=== PATIENT | male | born 1975 | race Hispanic/Latino ===

== ENCOUNTER 2020-02-17 22:05 | Emergency (ER) | payer SELFPAY ==
--- NOTE | 2020-02-17 23:09 | Emergency Department Report ---
HPI - General Chief Complaint: Arrhythmia/Palpitations Time Seen by Provider: 02/17/20 22:52 - HPI HPI: Room 38 The patient is a 44-year-old male present with a chief complaint of chest pain and palpitations. The patient states approximate 45 minutes ago he had sudden onset of sharp left-sided chest pain that lasted several seconds. Patient states he then felt palpitations whenever he gets nervous. Patient denies shortness of breath, nausea/vomiting or diaphoresis with this chest pain. 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 palpations - Surgical History Past Surgical History?: No - Family History Family history: no significant - Social History Smoking Status: Former Smoker (None x10 years) Substance Use Type: None - Medications Home Medications: Home Medications Medication Instructions Recorded Confirmed Last Taken Type Amoxicillin [Amoxicillin TAB] 875 mg PO BID #28 tablet 07/23/15 Unknown Rx Famotidine [Pepcid] 20 mg PO BID #60 tablet 07/23/15 Unknown Rx Metoprolol Tartrate [Lopressor] 50 mg PO BID 07/23/15 07/23/15 Unknown History predniSONE [Deltasone] 40 mg PO QDAY #10 tab 07/23/15 Unknown Rx Ibuprofen [Motrin] 800 mg PO Q8HR PRN #20 tablet 05/07/18 Unknown Rx metFORMIN [Glucophage] 500 mg PO BID #60 tablet 05/07/18 Unknown Rx ED Review of Systems ROS: Stated complaint: CHEST PAIN Other details as noted in HPI Constitutional: denies: diaphoresis Eyes: denies: eye pain ENT: denies: throat pain Respiratory: denies: shortness of breath Cardiovascular: chest pain, palpitations Endocrine: no symptoms reported Gastrointestinal: denies: nausea, vomiting Genitourinary: denies: dysuria Musculoskeletal: denies: back pain Neurological: denies: headache Psychiatric: anxiety Physical Exam - Physical Exam Vital Signs: Vital Signs 02/17/20 02/17/20 22:33 22:57 Temperature 97.9 F Pulse Rate 142 H Respiratory 18 20 Rate Blood Pressure 159/97 O2 Sat by Pulse 98 98 Oximetry Physical Exam: GENERAL: The patient is well-developed well-nourished male lying on stretcher not appearing to be in acute distress. [] HEENT: Normocephalic. Atraumatic. Extraocular motions are intact. Patient has moist mucous membranes. NECK: Supple. Trachea midline CHEST/LUNGS: Clear to auscultation. There is no respiratory distress noted. HEART/CARDIOVASCULAR: Regular. There is tachycardia. There is no gallop rub or murmur. ABDOMEN: Abdomen is soft, nontender. Patient has normal bowel sounds. There is no abdominal distention. SKIN: There is no rash. There is no edema. There is no diaphoresis. NEURO: The patient is awake, alert, and oriented. The patient is cooperative. The patient has normal speech MUSCULOSKELETAL: There is no evidence of acute injury. ED Course Vital Signs 02/17/20 02/17/20 22:33 22:57 Temperature 97.9 F Pulse Rate 142 H Respiratory 18 20 Rate Blood Pressure 159/97 O2 Sat by Pulse 98 98 Oximetry ED Medical Decision Making - Lab Data Result diagrams: 02/18/20 Unknown 02/17/20 23:30 Laboratory Tests 02/17/20 02/17/20 02/17/20 23:30 23:30 23:30 WBC RBC Hgb Hct MCV MCH MCHC RDW Plt Count Lymph % (Auto) [place] % (Auto) Eos % (Auto) Baso % (Auto) Lymph # (Auto) [place] # (Auto) Eos # (Auto) Baso # (Auto) Seg Neutrophils % Seg Neutrophils # D-Dimer < 135.00 Sodium 141 Potassium 4.0 Chloride 102.3 Carbon Dioxide 23 Anion Gap 20 BUN 18 Creatinine 1.1 Estimated GFR > 60 BUN/Creatinine Ratio 16 Glucose 239 H Calcium 9.9 Magnesium Total Creatine Kinase 67 CK-MB (CK-2) 1.2 CK-MB (CK-2) Rel Index 1.7 Troponin T < 0.010 TSH Free T4 Urine Opiates Screen Urine Methadone Screen Ur Barbiturates Screen Ur Phencyclidine Scrn Ur Amphetamines Screen U Benzodiazepines Scrn Urine Cocaine Screen U Marijuana (THC) Screen Drugs of Abuse Note Plasma/Serum Alcohol 02/17/20 02/17/20 02/17/20 23:30 23:30 23:30 WBC RBC Hgb Hct MCV MCH MCHC RDW Plt Count Lymph % (Auto) [place] % (Auto) Eos % (Auto) Baso % (Auto) Lymph # (Auto) [place] # (Auto) Eos # (Auto) Baso # (Auto) Seg Neutrophils % Seg Neutrophils # D-Dimer Sodium Potassium Chloride Carbon Dioxide Anion Gap BUN Creatinine Estimated GFR BUN/Creatinine Ratio Glucose Calcium Magnesium 2.00 Total Creatine Kinase CK-MB (CK-2) CK-MB (CK-2) Rel Index Troponin T TSH 1.870 Free T4 1.64 H Urine Opiates Screen Urine Methadone Screen Ur Barbiturates Screen Ur Phencyclidine Scrn Ur Amphetamines Screen U Benzodiazepines Scrn Urine Cocaine Screen U Marijuana (THC) Screen Drugs of Abuse Note Plasma/Serum Alcohol < 0.01 02/18/20 02/18/20 02/18/20 01:44 02:02 04:48 WBC RBC Hgb Hct MCV MCH MCHC RDW Plt Count Lymph % (Auto) [place] % (Auto) Eos % (Auto) Baso % (Auto) Lymph # (Auto) [place] # (Auto) Eos # (Auto) Baso # (Auto) Seg Neutrophils % Seg Neutrophils # D-Dimer Sodium Potassium Chloride Carbon Dioxide Anion Gap BUN Creatinine Estimated GFR BUN/Creatinine Ratio Glucose Calcium Magnesium Total Creatine Kinase CK-MB (CK-2) CK-MB (CK-2) Rel Index Troponin T < 0.010 < 0.010 TSH Free T4 Urine Opiates Screen Presumptive negative Urine Methadone Screen Presumptive negative Ur Barbiturates Screen Presumptive negative Ur Phencyclidine Scrn Presumptive negative Ur Amphetamines Screen Presumptive negative U Benzodiazepines Scrn Presumptive negative Urine Cocaine Screen Presumptive negative U Marijuana (THC) Screen Presumptive negative Drugs of Abuse Note Disclamer Plasma/Serum Alcohol 02/18/20 02/18/20 04:48 Unknown WBC 8.3 RBC 4.91 Hgb 15.2 Hct 43.6 MCV 89 MCH 31 MCHC 35 H RDW 13.3 Plt Count 286 Lymph % (Auto) 17.6 [place] % (Auto) 5.6 Eos % (Auto) 0.6 Baso % (Auto) 0.4 Lymph # (Auto) 1.5 [place] # (Auto) 0.5 Eos # (Auto) 0.1 Baso # (Auto) 0.0 Seg Neutrophils % 75.8 H Seg Neutrophils # 6.3 D-Dimer Sodium Potassium Chloride Carbon Dioxide Anion Gap BUN Creatinine Estimated GFR BUN/Creatinine Ratio Glucose Calcium Magnesium Total Creatine Kinase CK-MB (CK-2) CK-MB (CK-2) Rel Index Troponin T < 0.010 TSH Free T4 Urine Opiates Screen Urine Methadone Screen Ur Barbiturates Screen Ur Phencyclidine Scrn Ur Amphetamines Screen U Benzodiazepines Scrn Urine Cocaine Screen U Marijuana (THC) Screen Drugs of Abuse Note Plasma/Serum Alcohol - EKG Data -: EKG Interpreted by Me EKG shows normal: sinus rhythm Rate: tachycardia (144 bpm) - EKG Data When compared to previous EKG there are: previous EKG unavailable Interpretation: other (No ischemic changes seen) - Radiology Data Radiology results: report reviewed (Chest x-ray), image reviewed (Chest x-ray) interpreted by me: Chest x-ray-no focal infiltrates, no pneumothorax [facility], [address] [place] [address] XRay Report Signed Patient: MURRAY GAN MR#: [id number] : 1975 Acct:[id number] Age/Sex: 44 / M ADM Date: 02/17/20 Loc: ED Attending Dr: Ordering Physician: DEANDRA HERNADEZ MD Date of Service: 02/17/20 Procedure(s): XR chest 1V ap Accession Number(s): [id number] cc: DEANDRA HERNADEZ MD Fluoro Time In Minutes: XR chest 1V ap INDICATION / CLINICAL INFORMATION: Chest Pain COMPARISON: None available. FINDINGS: SUPPORT DEVICES: None. HEART / MEDIASTINUM: No significant abnormality. LUNGS / PLEURA: Lungs are clear. Costophrenic sulci are sharp. No pneumothorax. ADDITIONAL FINDINGS: No significant additional findings. IMPRESSION: 1. No acute findings. Signer Name: Timbo Hopson MD Signed: 02/17/2020 11:10 PM Workstation Name: [id number] Transcribed By: CS Dictated By: Timbo Hopson MD Electronically Authenticated By: Timbo Hopson MD Signed Date/Time: 02/17/202309 DD/ 09 TD/TT: - Differential Diagnosis PE, ACS, dysrhythmia, pericarditis, GERD, hypothyroidism Critical care attestation.: If time is entered above; I have spent that time in minutes in the direct care of this critically ill patient, excluding procedure time. ED Disposition Clinical Impression: Palpitations, Anxiety Disposition: DC-01 TO HOME OR SELFCARE Is pt being admited?: No Does the pt Need Aspirin: No Condition: Stable Additional Instructions: Return to the emergency department should you develop worsening symptoms, inability to tolerate food or liquids, high fever or any other concerns Referrals: PRIMARY CARE, [Primary Care Provider] - 3-5 Days [facility] [Provider Group] - 3-5 Days Time of Disposition: 05:26
--- NOTE | 2020-02-17 23:14 | XRay Report ---
XR chest 1V ap INDICATION / CLINICAL INFORMATION: Chest Pain COMPARISON: None available. FINDINGS: SUPPORT DEVICES: None. HEART / MEDIASTINUM: No significant abnormality. LUNGS / PLEURA: Lungs are clear. Costophrenic sulci are sharp. No pneumothorax. ADDITIONAL FINDINGS: No significant additional findings. IMPRESSION: 1. No acute findings. Signer Name: Timbo Hopson MD Signed: 02/17/2020 11:10 PM Workstation Name: [id number]
[2020-02-17] MEDS ORDERED: SODIUM CHLORIDE 0.9% 1000 ML 1,000 ML IV ONE (23:20)
[2020-02-18 00:18] LABS: Basophils % (Auto) 0.4 % (0.0-1.8); Eosinophils # (Auto) 0.1 K/mm3 (0.0-0.4); Eosinophils % (Auto) 0.6 % (0.0-4.3); Hematocrit 43.6 % (35.5-45.6); Hemoglobin 15.2 gm/dl (11.8-15.2); Lymphocytes # (Auto) 1.5 K/mm3 (1.2-5.4); Lymphocytes % (Auto) 17.6 % (13.4-35.0); Mean Corpuscular HGB Conc 35 % (32-34); Mean Corpuscular Volume 89 fl (84-94); Monocytes # (Auto) 0.5 K/mm3 (0.0-0.8); Monocytes % (Auto) 5.6 % (0.0-7.3); Platelet Count 286 K/mm3 (140-440); Red Blood Count 4.91 M/mm3 (3.65-5.03); Red Cell Distribution Width 13.3 % (13.2-15.2)
[2020-02-18 00:27] LABS: BUN/Creatinine Ratio 16; Blood Urea Nitrogen 18 mg/dL (9-20); Calcium 9.9 mg/dL (8.4-10.2); Hemolysis Index 7
[2020-02-18 00:30] LABS: Creatine Kinase MB 1.2 ng/mL (0.0-4.0)
[2020-02-18] MEDS ORDERED: SODIUM CHLORIDE 0.9% 1000 ML 1,000 ML IV ONE ×2 (00:39→03:05)
[2020-02-18 00:41] LABS: Free T4 (Free Thyroxine) 1.64 ng/dL (0.76-1.46)
[2020-02-18 02:17] LABS: Amphetamine Screen,Urine PRESUMPTIVE NEGATIVE; Benzodiazepines Screen,Urine PRESUMPTIVE NEGATIVE; Cannabinoid Screen,Urine PRESUMPTIVE NEGATIVE; Cocaine Screen,Urine PRESUMPTIVE NEGATIVE; Methadone Screen,Urine PRESUMPTIVE NEGATIVE; Opiate Screen,Urine PRESUMPTIVE NEGATIVE
[2020-02-18 05:46] VITALS: BP 152/97
== END 2020-02-18 05:58 | disposition home or self-care (01) ==
LOC: ED 22:05
DX: F41.9 Anxiety disorder, unspecified (principal); R00.2 Palpitations; K21.9 Gastro-esophageal reflux disease without esophagitis; E11.9 Type 2 diabetes mellitus without complications; Z79.899 Other long term (current) drug therapy; Z87.891 Personal history of nicotine dependence
CPT/HCPCS: 36415; 71045; 80048; 80307; 82550; 82553; 83735; 84439; 84443; 84484; 85025; 85379; 93005; 96360; 96361; 99284; J7030; 80320; G0480

== ENCOUNTER 2020-02-26 15:31 | Emergency (ER) | payer SELFPAY ==
--- NOTE | 2020-02-26 16:13 | Event Note ---
ED Screening Note Date of service: 02/26/20 Time: 16:12 ED Screening Note: Patient complains of frontal headache x2 days States headache significantly improved with Aleve Heart rate noted to be 160, patient states history of palpitations He denies any chest pain or shortness of breath at current This initial assessment/diagnostic orders/clinical plan/treatment(s) is/are subject to change based on patients health status, clinical progression and re- assessment by fellow clinical providers in the ED. Further treatment and workup at subsequent clinical providers discretion. Patient/guardian urged not to elope from the ED as their condition may be serious if not clinically assessed and man aged. Initial orders include: Labs EKG Chest x-ray
[2020-02-26 16:26] LABS: Basophils # (Auto) 0.1 K/mm3 (0.0-0.1); Basophils % (Auto) 0.6 % (0.0-1.8); Eosinophils % (Auto) 0.2 % (0.0-4.3); Hematocrit 43.3 % (35.5-45.6); Hemoglobin 15.4 gm/dl (11.8-15.2); Lymphocytes # (Auto) 1.8 K/mm3 (1.2-5.4); Lymphocytes % (Auto) 17.6 % (13.4-35.0); Mean Corpuscular HGB Conc 36 % (32-34); Mean Corpuscular Volume 88 fl (84-94); Monocytes # (Auto) 0.7 K/mm3 (0.0-0.8); Monocytes % (Auto) 7.1 % (0.0-7.3); Platelet Count 336 K/mm3 (140-440); Red Blood Count 4.93 M/mm3 (3.65-5.03); Red Cell Distribution Width 13.5 % (13.2-15.2)
[2020-02-26] MEDS ORDERED: SODIUM CHLORIDE 0.9% 1000 ML 1,000 ML IV ONE ×2 (16:45→18:03)
[2020-02-26 16:48] LABS: Alanine Aminotransferase 23 units/L (7-56); Albumin 4.8 g/dL (3.9-5); BUN/Creatinine Ratio 13; Blood Urea Nitrogen 13 mg/dL (9-20); Hemolysis Index 6
[2020-02-26 17:04] LABS: Free T4 (Free Thyroxine) 1.45 ng/dL (0.76-1.46); INR 1.04 (0.87-1.13)
[2020-02-26 17:05] LABS: Partial Thromboplastin Time 26.3 Sec. (24.2-36.6)
--- NOTE | 2020-02-26 17:23 | XRay Report ---
CHEST 1 VIEW 02/26/2020 4:16 PM INDICATION / CLINICAL INFORMATION: tachycardia. COMPARISON: 02/17/20 FINDINGS: SUPPORT DEVICES: None. HEART / MEDIASTINUM: No significant abnormality. LUNGS / PLEURA: No significant pulmonary or pleural abnormality. No pneumothorax. ADDITIONAL FINDINGS: No significant additional findings. IMPRESSION: 1. No acute findings. Signer Name: Artem Ly MD Signed: 02/26/2020 5:18 PM Workstation Name: [id number]
--- NOTE | 2020-02-26 17:39 | Emergency Department Report ---
ED Palpitations HPI - General Chief Complaint: Arrhythmia/Palpitations Stated Complaint: HEADACHE X2 DAYS Time Seen by Provider: 02/26/20 16:11 Source: patient Mode of arrival: Ambulatory Limitations: No Limitations - History of Present Illness Initial Comments: 44-year male with a past medical history of palpitations/tachycardia presents to the hospital with intermittent headache for several days and noted to have tachycardia/palpitations while in the waiting room and during triage. Patient has had intermittent headache for the last 3 days. Headache is a frontal pressure type of headache that also extends down behind the eyes and maxilla. Patient states he sleeps in a dry room with a fan in his face and suspects that he is having a sinus related headache. He took two Advil's earlier today with resolution of pain. He is also taking unknown nasal spray. He denies runny nose, nasal congestion, fever, blurry vision, neck stiffness, or focal weakness or numbness. Patient was here February for palpitations and had a unremarkable ED work-up and was subsequently discharged to follow-up with [facility]. Patient has an appointment with [facility] scheduled for tomorrow however, called the clinic expressing he had a headache and was told to come to the ER for evaluation. Patient states after arrival he developed increased heart rate and some mild anxiety. Patient reports a previous history of anxiety. He also reports that he had an outpatient cardiac work-up approximately [address] Canales in office. He states he has had both echocardiogram and a stress test and was placed on a medication in the past but cannot recall the name. Patient patient takes Metformin for diabetes, [id number] Advil and nasal spray currently. He also denies alcohol abuse and drug abuse specifically cocaine or amphetamines. Denies caffeine or energy drink use. Patient also denies history of PE/DVT, calf tenderness, or recent travel. Pt states he does have intermittent palpitations associated with anxiety that he is typically able to calm down and relax without the aid of medicine. Pt apparently has an appointment with Dr Canales scheduled for next week. - Related Data Home Medications Medication Instructions Recorded Confirmed Last Taken Metoprolol Tartrate [Lopressor] 50 mg PO BID 07/23/15 07/23/15 Unknown Previous Rx's Medication Instructions Recorded Last Taken Type Amoxicillin [Amoxicillin TAB] 875 mg PO BID #28 tablet 07/23/15 Unknown Rx Famotidine [Pepcid] 20 mg PO BID #60 tablet 07/23/15 Unknown Rx predniSONE [Deltasone] 40 mg PO QDAY #10 tab 07/23/15 Unknown Rx Ibuprofen [Motrin] 800 mg PO Q8HR PRN #20 tablet 05/07/18 Unknown Rx metFORMIN [Glucophage] 500 mg PO BID #60 tablet 05/07/18 Unknown Rx Metoprolol [Lopressor TAB] 25 mg PO BID #60 tablet 02/26/20 Unknown Rx Allergies Allergy/AdvReac Type Severity Reaction Status Date / Time No Known Allergies Allergy Verified 12/07/14 11:21 ED Review of Systems ROS: Stated complaint: HEADACHE X2 DAYS Other details as noted in HPI Comment: All other systems reviewed and negative ED Past Medical Hx - Past Medical History Hx Diabetes: Yes Hx GERD: Yes Additional medical history: sinusitis, anxiety. palpations - Social History Smoking Status: Never Smoker - Medications Home Medications: Home Medications Medication Instructions Recorded Confirmed Last Taken Type Amoxicillin [Amoxicillin TAB] 875 mg PO BID #28 tablet 07/23/15 Unknown Rx Famotidine [Pepcid] 20 mg PO BID #60 tablet 07/23/15 Unknown Rx Metoprolol Tartrate [Lopressor] 50 mg PO BID 07/23/15 07/23/15 Unknown History predniSONE [Deltasone] 40 mg PO QDAY #10 tab 07/23/15 Unknown Rx Ibuprofen [Motrin] 800 mg PO Q8HR PRN #20 tablet 05/07/18 Unknown Rx metFORMIN [Glucophage] 500 mg PO BID #60 tablet 05/07/18 Unknown Rx Metoprolol [Lopressor TAB] 25 mg PO BID #60 tablet 02/26/20 Unknown Rx ED Physical Exam - General Limitations: No Limitations - Other Other exam information: General: No acute distress Head: Atraumatic Eyes: normal appearance ENT: Moist mucous membranes Neck: Normal appearance, no midline tenderness Chest: Clear to auscultation bilaterally CV: Tachycardic, regular rhythm Abdomen: Soft, normal bowel sounds, nontender, nondistended, no rebound or guarding Back: Normal inspection Extremity: Normal inspection, full range of motion, no calf tenderness or leg edema Neuro: Alert O x 3, no facial asymmetry, speech clear, no gross motor sensory deficit Psych: Appropriate behavior Skin: No rash ED Course Vital Signs 02/26/20 02/26/20 02/26/20 16:10 16:12 17:21 Temperature 97.8 F Pulse Rate 161 H 154 H Respiratory 20 18 Rate Blood Pressure 150/109 Blood Pressure 150/109 [Right] O2 Sat by Pulse 96 96 100 Oximetry 02/26/20 02/26/20 02/26/20 18:12 21:11 22:33 Temperature Pulse Rate 129 H 123 H 86 Respiratory 18 18 Rate Blood Pressure 143/98 Blood Pressure 151/93 138/82 [Right] O2 Sat by Pulse 99 100 Oximetry - Reevaluation(s) Reevaluation #1: 02/26/20 20:19 HR 112 after 2 NS but increases to 133 with speaking - Consultations Consultation #1: 02/26/20 20:22 case d/w Dr 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 First dose will be provided in ed. ED Medical Decision Making - Lab Data Result diagrams: 02/26/20 16:13 02/26/20 16:13 Lab Results 02/26/20 02/26/20 02/26/20 Range/Units 16:13 16:13 16:27 WBC 10.0 (4.5-11.0) K/mm3 RBC 4.93 (3.65-5.03) M/mm3 Hgb 15.4 H (11.8-15.2) gm/dl Hct 43.3 (35.5-45.6) % MCV 88 (84-94) fl MCH 31 (28-32) pg MCHC 36 H (32-34) % RDW 13.5 (13.2-15.2) % Plt Count 336 (140-440) K/mm3 Lymph % (Auto) 17.6 (13.4-35.0) % [place] % (Auto) 7.1 (0.0-7.3) % Eos % (Auto) 0.2 (0.0-4.3) % Baso % (Auto) 0.6 (0.0-1.8) % Lymph # (Auto) 1.8 (1.2-5.4) K/mm3 [place] # (Auto) 0.7 (0.0-0.8) K/mm3 Eos # (Auto) 0.0 (0.0-0.4) K/mm3 Baso # (Auto) 0.1 (0.0-0.1) K/mm3 Seg Neutrophils % 74.5 H (40.0-70.0) % Seg Neutrophils # 7.5 (1.8-7.7) K/mm3 PT (12.2-14.9) Sec. INR (0.87-1.13) APTT (24.2-36.6) Sec. D-Dimer (0-234) ng/mlDDU Sodium 140 (137-145) mmol/L Potassium 3.6 (3.6-5.0) mmol/L Chloride 103.8 (98-107) mmol/L Carbon Dioxide 25 (22-30) mmol/L Anion Gap 15 mmol/L BUN 13 (9-20) mg/dL Creatinine 1.0 (0.8-1.3) mg/dL Estimated GFR > 60 ml/min BUN/Creatinine Ratio 13 % Glucose 144 H (75-100) mg/dL Calcium 10.0 (8.4-10.2) mg/dL Magnesium 2.30 (1.7-2.3) mg/dL Total Bilirubin 0.50 (0.1-1.2) mg/dL AST 18 (5-40) units/L ALT 23 (7-56) units/L Alkaline Phosphatase 91 (35-129) units/L Troponin T < 0.010 (0.00-0.029) ng/mL Total Protein 7.8 (6.3-8.2) g/dL Albumin 4.8 (3.9-5) g/dL Albumin/Globulin Ratio 1.6 % TSH (0.270-4.200) mlU/mL Free T4 (0.76-1.46) ng/dL Urine Opiates Screen Urine Methadone Screen Ur Barbiturates Screen Ur Phencyclidine Scrn Ur Amphetamines Screen U Benzodiazepines Scrn Urine Cocaine Screen U Marijuana (THC) Screen Drugs of Abuse Note 02/26/20 02/26/20 02/26/20 Range/Units 16:27 16:27 16:27 WBC (4.5-11.0) K/mm3 RBC (3.65-5.03) M/mm3 Hgb (11.8-15.2) gm/dl Hct (35.5-45.6) % MCV (84-94) fl MCH (28-32) pg MCHC (32-34) % RDW (13.2-15.2) % Plt Count (140-440) K/mm3 Lymph % (Auto) (13.4-35.0) % [place] % (Auto) (0.0-7.3) % Eos % (Auto) (0.0-4.3) % Baso % (Auto) (0.0-1.8) % Lymph # (Auto) (1.2-5.4) K/mm3 [place] # (Auto) (0.0-0.8) K/mm3 Eos # (Auto) (0.0-0.4) K/mm3 Baso # (Auto) (0.0-0.1) K/mm3 Seg Neutrophils % (40.0-70.0) % Seg Neutrophils # (1.8-7.7) K/mm3 PT 13.5 (12.2-14.9) Sec. INR 1.04 (0.87-1.13) APTT 26.3 (24.2-36.6) Sec. D-Dimer 154.63 (0-234) ng/mlDDU Sodium (137-145) mmol/L Potassium (3.6-5.0) mmol/L Chloride (98-107) mmol/L Carbon Dioxide (22-30) mmol/L Anion Gap mmol/L BUN (9-20) mg/dL Creatinine (0.8-1.3) mg/dL Estimated GFR ml/min BUN/Creatinine Ratio % Glucose (75-100) mg/dL Calcium (8.4-10.2) mg/dL Magnesium (1.7-2.3) mg/dL Total Bilirubin (0.1-1.2) mg/dL AST (5-40) units/L ALT (7-56) units/L Alkaline Phosphatase (35-129) units/L Troponin T (0.00-0.029) ng/mL Total Protein (6.3-8.2) g/dL Albumin (3.9-5) g/dL Albumin/Globulin Ratio % TSH 1.320 (0.270-4.200) mlU/mL Free T4 1.45 (0.76-1.46) ng/dL Urine Opiates Screen Urine Methadone Screen Ur Barbiturates Screen Ur Phencyclidine Scrn Ur Amphetamines Screen U Benzodiazepines Scrn Urine Cocaine Screen U Marijuana (THC) Screen Drugs of Abuse Note 02/26/20 Range/Units 19:01 WBC (4.5-11.0) K/mm3 RBC (3.65-5.03) M/mm3 Hgb (11.8-15.2) gm/dl Hct (35.5-45.6) % MCV (84-94) fl MCH (28-32) pg MCHC (32-34) % RDW (13.2-15.2) % Plt Count (140-440) K/mm3 Lymph % (Auto) (13.4-35.0) % [place] % (Auto) (0.0-7.3) % Eos % (Auto) (0.0-4.3) % Baso % (Auto) (0.0-1.8) % Lymph # (Auto) (1.2-5.4) K/mm3 [place] # (Auto) (0.0-0.8) K/mm3 Eos # (Auto) (0.0-0.4) K/mm3 Baso # (Auto) (0.0-0.1) K/mm3 Seg Neutrophils % (40.0-70.0) % Seg Neutrophils # (1.8-7.7) K/mm3 PT (12.2-14.9) Sec. INR (0.87-1.13) APTT (24.2-36.6) Sec. D-Dimer (0-234) ng/mlDDU Sodium (137-145) mmol/L Potassium (3.6-5.0) mmol/L Chloride (98-107) mmol/L Carbon Dioxide (22-30) mmol/L Anion Gap mmol/L BUN (9-20) mg/dL Creatinine (0.8-1.3) mg/dL Estimated GFR ml/min BUN/Creatinine Ratio % Glucose (75-100) mg/dL Calcium (8.4-10.2) mg/dL Magnesium (1.7-2.3) mg/dL Total Bilirubin (0.1-1.2) mg/dL AST (5-40) units/L ALT (7-56) units/L Alkaline Phosphatase (35-129) units/L Troponin T (0.00-0.029) ng/mL Total Protein (6.3-8.2) g/dL Albumin (3.9-5) g/dL Albumin/Globulin Ratio % TSH (0.270-4.200) mlU/mL Free T4 (0.76-1.46) ng/dL Urine Opiates Screen Negative Urine Methadone Screen Negative Ur Barbiturates Screen Negative Ur Phencyclidine Scrn Negative Ur Amphetamines Screen Negative U Benzodiazepines Scrn Negative Urine Cocaine Screen Negative U Marijuana (THC) Screen Negative Drugs of Abuse Note Disclamer - EKG Data -: EKG Interpreted by Me (Sinus tach rate 143) EKG shows normal: sinus rhythm, QRS complexes (qrsd), ST-T waves (No ST elevation VA) Rate: tachycardia (143) - EKG Data 02/26/20 17:44 Repeat EKG shows sinus tach rate 142 - Radiology Data Radiology results: report reviewed - Medical Decision Making 44yo with history of chronic intermittent palpitations as well as anxiety with previous cardiac work-up in the past. ED work-up unremarkable. Metoprolol provided after consultation with cardiology with improvement in BP and heart rate. Patient's main complaint was sinus related headache. Patient does not have fever or neurologic symptoms. Headache improved with Advil. Patient counseled on adding humidified air to his bedroom continue Advil for pain and nasal sprays as well as follow-up with PMD and technical professional Critical Care Time: No Critical care attestation.: If time is entered above; I have spent that time in minutes in the direct care of this critically ill patient, excluding procedure time. ED Disposition Clinical Impression: Palpitations, Anxiety, Sinus headache Disposition: OP ADMIT IP TO THIS HOSP Is pt being admited?: No Does the pt Need Aspirin: No Condition: Stable Instructions: Sinus Headache, Palpitations, Managing Anxiety, Adult Additional Instructions: Take the medication as prescribed. Follow-up with [facility] and [facility] as scheduled . Return if symptoms worsen as indicated by your discharge instructions. Prescriptions: Metoprolol [Lopressor TAB] 25 mg PO BID #60 tablet Referrals: JANAE CANALES MD [Staff Physician] - 3-5 Days [facility] [Provider Group] - 2-3 Days Time of Disposition: 22:14
[2020-02-26 19:32] LABS: Amphetamine Screen,Urine Negative; Benzodiazepines Screen,Urine Negative; Cannabinoid Screen,Urine Negative; Cocaine Screen,Urine Negative; Methadone Screen,Urine Negative; Opiate Screen,Urine Negative
[2020-02-26] MEDS ORDERED: METOPROLOL TARTRATE 50 MG TAB PO ONE (20:22)
[2020-02-26 22:34] VITALS: BP 138/82
== END 2020-02-26 22:33 | disposition admitted as inpatient to this hospital (09) ==
LOC: ED 15:31
DX: F41.9 Anxiety disorder, unspecified (principal); R51.9 Headache, unspecified; R00.2 Palpitations; K21.9 Gastro-esophageal reflux disease without esophagitis; E11.9 Type 2 diabetes mellitus without complications; Z79.899 Other long term (current) drug therapy
CPT/HCPCS: 36415; 71045; 80053; 80307; 83735; 84439; 84443; 84484; 85025; 85379; 85610; 85730; 93005; 96360; 96361; 99284; J7030